=== PATIENT | male | born 1970 | race American Indian/Alaskan Native ===

== ENCOUNTER 2024-11-29 16:00 | Emergency (ER) | payer OTHER, SELFPAY ==
[2024-11-29] VITALS (10 sets, daily range): BP systolic 73–142; BP diastolic 49–65; PULSE 87–100; RESP 16–20; TEMP 36.6–36.8; O2SAT 91–100; BMI 38.7
--- NOTE | 2024-11-29 16:39 | EKG_ITS ---
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
--- NOTE | 2024-11-29 16:43 | PD.EDABDPN ---
ED Abdominal Pain RME/HPI General Chief Complaint: Abdominal Pain Stated complaint: UPPER ABD PAIN, N/V, BLACK STOOL, WEAKNESS Time seen by provider: 11/29/24 16:14 Arrival date/time: 11/29/24 16:00 RME / HPI RME / HPI narrative: 54-year-old male patient with significant history of chronic alcoholism, consuming 36 cans of beer every week, came in for evaluation regarding upper abdominal pain, nausea, vomiting, was also noted to have black stool for the last 3 days. No fever but complained of generalized body weakness.. In the triage patient was noted to be a blood pressure of 73/54 heart rate of 98. Patient is not taking any blood thinner Related Data Allergies Allergy/AdvReac Type Severity Reaction Status Date / Time No Known Allergies Allergy Verified 11/29/24 16:04 Review of Systems Review of Systems Narrative Review of Systems: Review of system reviewed and within normal limits except mentioned in HPI ED Exam Narrative Physical exam: VITAL SIGNS: Reviewed. GENERAL APPEARANCE: Alert and interactive, follows commands, no acute distress, HEAD AND FACE: Non-traumatic. ENT: PERRL, pale conjunctiva, eyelid no trauma, Mucous membrane moist. NECK: Supple, nontender, no nuchal rigidity. CHEST: No tenderness, no crepitus, no paradoxical movement, no retractions. LUNGS: Clear, well ventilated, symmetric, no rales, no wheezing, no ronchi, no stridor, good breath sounds bilaterally. HEART: Regular rate, regular rhythm, no murmur, no gallops. ABDOMEN: Soft, positive bowel sounds, nondistended, no guarding, nontender, no rebound, no masses, RECTAL: Deferred. GENITAL: Deferred. NEUROLOGICAL: Gross motor function intact sensory function intact, Appropriate for age. MUSCULOSKELETAL: low back nontender, full range of motion. EXTREMITIES: Nontender, full range of motion. SKIN: Color pink, dry, no rash, no lacerations, no abrasions, no contusions. LYMPHATICS: Deferred. Course Quality Measures none Orders Category Date Time Status Blood Sugar Check-Sandostatin Q1HR Care 11/29/24 19:35 Active EKG (ED ONLY) *Do not use* NOW Care 11/29/24 16:39 Completed Occult Blood,Stool (Nursing) NOW Care 11/29/24 16:39 Active Referral - Marketing Communications Leader Stat Cons 11/29/24 18:16 Active EKG (ED Only) Stat Exams 11/29/24 16:39 Draft Alcohol, Blood Medical Stat Lab 11/29/24 17:13 Completed CBC Stat Lab 11/29/24 17:13 Completed CBC [CBC] Stat Lab 11/29/24 22:27 Completed Comprehensive Metabolic Panel Stat Lab 11/29/24 17:13 Completed Drug Screen,Urine Stat Lab 11/29/24 19:11 Completed Lipase Stat Lab 11/29/24 17:13 Completed Partial Thromboplastin Time Stat Lab 11/29/24 17:13 Completed Prothrombin Time with INR Stat Lab 11/29/24 17:13 Completed Type and Screen Stat Lab 11/29/24 17:13 Completed Urinalysis Stat Lab 11/29/24 19:11 Completed Octreotide Acet Inj [SandoSTATIN Inj] Med 11/29/24 16:39 Discontinued 50 mcg IV X1 ONE Pantoprazole Inj [Protonix Inj] Med 11/29/24 16:39 Discontinued 80 mg IV X1 ONE Ringers Lactated 1000 ml [Lactated Ringers] 1,000 ml Med 11/29/24 18:11 Discontinued IV 999 mls/hr Ringers Lactated 1000 ml [Lactated Ringers] 1,000 ml Med 11/29/24 21:53 Discontinued IV 999 mls/hr Sodium Chloride 0.9% [Ns] 100 ml Med 11/29/24 16:40 Active Octreotide Acet Inj [SandoSTATIN Inj] 1,000 mcg IV 50 mcg/hr Vital Signs Vital signs: Vital Signs Temperature 98.1 F 11/29/24 16:33 Pulse Rate 98 11/29/24 16:33 Respiratory Rate 18 11/29/24 16:33 Blood Pressure 73/54 L 11/29/24 16:33 Pulse Oximetry (%) 97 11/29/24 16:33 Oxygen Delivery Method Room Air 11/29/24 16:33 Abdominal Pain MDM MDM Narrative MDM Narrative:: 54-year-old male patient with significant history of chronic alcoholism, consuming 36 cans of beer every week, came in for evaluation regarding upper abdominal pain, nausea, vomiting, was also noted to have black stool for the last 3 days. No fever but complained of generalized body weakness.. In the triage patient was noted to be a blood pressure of 73/54 heart rate of 98. Patient is not taking any blood thinner Patient received 2 L of IV LR, for hypotension currently patient's blood pressure was noted to be 102/59. Patient's hemoglobin was noted to be 11.1, after 3 hours, it dropped to 8.9. Hematocrit of 26. Patient is to be transferred to higher level care. We do not have GI specialist on-call today. I spoke with Dr. Jimenez from [facility] who accepted the patient. Thank you Dr. Patient data External records reviewed:: None Clinical information provided by:: patient Social determinants that could affect healthcare access:: alcohol use Patient has the following chronic illnesses:: None How is presenting disease/condition affected by chronic disease/condition?: no chronic disease Evaluation data The following diagnostics were reviewed and interpreted by me:: lab results and EKG tracing(s) Lab and/or radiology exams considered but not ordered:: None Interpretation Summary: EKG shows sinus rhythm, ventricular rate of 83 bpm, no ST segment elevation depression noted. Medications / Prescriptions Medications or Prescriptions considered but not ordered:: None Medication administrations:: Medication Administration History Octreotide Acetate 1,000 mcg/ (Sodium Chloride) 102 mls @ 5.1 mls/hr IV .Q20H ONE; Protocol Stop: 11/30/24 12:39 Last Admin: 11/29/24 18:30 Dose: 50 mcg/hr, 5.1 mls/hr Documented By: NILS Discontinued Medications Lactated Ringer's (Lactated Ringers) 1,000 mls @ 999 mls/hr IV .Q1H1M ONE Stop: 11/29/24 19:11 Last Infusion: 11/29/24 19:27 Dose: Infused Documented By: Admin: 11/29/24 18:17 Dose: 999 mls/hr Documented By: NILS Lactated Ringer's (Lactated Ringers) 1,000 mls @ 999 mls/hr IV .Q1H1M ONE Stop: 11/29/24 22:53 Last Infusion: 11/29/24 22:49 Dose: Infused Documented By: Admin: 11/29/24 21:58 Dose: 999 mls/hr Documented By: FLORIN Octreotide Acetate (Octreotide Acet Inj 50 Mcg/Ml Vial) 50 mcg IV X1 ONE Stop: 11/29/24 16:40 Last Admin: 11/29/24 18:21 Dose: 50 mcg Documented By: NILS Pantoprazole Sodium (Pantoprazole Inj 40 Mg Vial) 80 mg IV X1 ONE Stop: 11/29/24 16:40 Last Admin: 11/29/24 18:18 Dose: 80 mg Documented By: VG IV fluids, pantoprazole IV, Sandostatin IV, Consultations Consultation(s) initiated? (list below): No Diagnosis Differential diagnosis abdominal pain: other (Upper GI bleed, black tarry stool, hypotension, anemia) Most likely diagnosis given after review of the tests above:: Upper GI bleed Admission Indicated Admission indicated?: indicated (Patient is to be transferred to higher level care) Admission Request Was there a request for admission?: No Disposition Plan Disposition Plan: Transfer Discharge Plan Plan Patient Disposition: [facility] Facility Pt Being Transferred to: [facility] Prescriptions/Referrals Referrals: No Primary/Family,Physician [Primary Care Provider] - In 1 week Problem List Clinical Impression: Hypotension, Acute upper gastrointestinal bleeding, Alcoholism, chronic Patient/Caregiver Discharge Instructions Print Language: [place] Citizen Stand Alone Forms: Candida Award Info., Patient Portal Info Letter
[2024-11-29 17:36] LABS: Basophils # (Auto) 0.1 Thou/mm3 (0.0-0.2); Basophils % (Auto) 1 % (0-2.5); Eosinophils # (Auto) 0.4 Thou/mm3 (0.0-0.5); Eosinophils % (Auto) 3 % (0-10); Hematocrit 32.3 % (41.0-53.0); Hemoglobin 11.1 g/dL (13.5-16.0); Immature Granulocytes % (Auto) 0 % (0-0); Immature Granulocytes Auto 0.07 Thou/mm3 (0.00-0.00); Lymphocytes # (Auto) 3.8 Thou/mm3 (1.0-4.8); Lymphocytes % (Auto) 24 % (10-50); Mean Corpuscular HGB Conc 34.4 g/dl (31.0-37.0); Mean Corpuscular Hemoglobin 30.7 pg (25.0-35.0); Mean Corpuscular Volume 89 fL (80-100); Monocytes # (Auto) 0.9 Thou/mm3 (0.0-0.8); Monocytes % (Auto) 6 % (0-12); Neutrophils # (Auto) 10.7 Thou/mm3 (1.8-7.7); Neutrophils % (Auto) 67 % (37-80); Nucleated Red Blood Cell % 0 /100 WBC (0); Platelet Count 230 Thou/mm3 (140-440); RDW Standard Deviation 41.6 fL (35.1-43.9); Red Blood Count 3.62 Miln/mm3 (4.50-5.90); White Blood Count 15.9 Thou/mm3 (3.8-10.6)
--- NOTE | 2024-11-29 18:16 | PC.CC ---
Addendum entered by Bridget Nino RN 11/29/24 18:50: Spoke to Marquita at [facility] about transfer, call transferred to ER Addendum entered by Bridget Nino RN 11/29/24 18:20: Chart faxed to [facility] system Original Note: Made aware by DOMINGO Saez that patient needs transfer for GI for GI bleed
[2024-11-29] MEDS: RINGERS LACTATED 1000 ML 1,000 ML 999 ML IV ×2 (18:17→21:58)
[2024-11-29] MEDS: PANTOPRAZOLE INJ 40 MG VIAL 80 MG IV (18:18)
[2024-11-29] MEDS: OCTREOTIDE ACET INJ 50 mCg/ML VIAL IV (18:21)
[2024-11-29 18:30] LABS: Alanine Aminotransferase 27 U/L (10-49); Albumin, Serum 3.9 gm/dL (3.5-5.0); Albumin/Globulin Ratio 1.9 (1.2-2.2); Alcohol, Blood Medical < 3.0 mg/dL (0-10.0); Alkaline Phosphatase 64 U/L (46-116); Anion Gap 11 (7-16); Aspartate Amino Transferase 15 U/L (0-34); BUN/Creatinine Ratio 52 Ratio (12-20); Bilirubin,Total 0.5 mg/dL (0.3-1.2); Blood Urea Nitrogen 62 mg/dL (9-23); Calcium 8.6 mg/dL (8.3-10.6); Calcium (Corrected) 8.7 mg/dL (8.5-10.1); Carbon Dioxide 20.7 mMol/L (20.0-31.0); Chloride 105 mMol/L (98-107); Creatinine (Component) 1.2 mg/dL (0.6-1.3); Estimated Creatinine Clearance 90.2 mL/min (>60); Globulin 2.1 gm/dL (2.3-3.5); Glucose 198 mg/dL (74-106); Lipase 36 U/L (12-53); Osmolality,Calculated 297 (275-295); Potassium 4.8 mMol/L (3.4-5.1); Sodium 137 mMol/L (136-145); eGFR > 60 See Note
[2024-11-29] MEDS: OCTREOTIDE ACET INJ 1,000 MCG in SODIUM CHLORIDE 0.9% 100 ML 5.1 MCG IV (18:30)
[2024-11-29 18:37] LABS: Partial Thromboplastin Time 24.3 Seconds (22.0-36.0); Prothrombin Time 11.1 Seconds (9.0-12.2)
[2024-11-29 19:16] LABS: Collection Type, Urine Clean Catch
[2024-11-29 19:26] LABS: Bilirubin,Urine Negative (Negative); Blood,Urine Negative (Negative); Clarity,Urine Clear (Clear/Hazy); Color,Urine Yellow (Lt Yel-Yel); Glucose, Urine 4+ (Negative); Hyaline Casts,Urine 1 /hpf (0-1); Ketones,Urine Trace (Negative); Leukocyte Esterase,Urine Negative (Negative); Nitrite,Urine Negative (Negative); PH,Urine 5.5 (5.0-7.0); Protein,Urine Trace (Neg - Trace); RBC,Urine 1 /hpf (0-3); Specific Gravity,Urine 1.027 (1.001-1.035); Squamous Epithelial Cell,Urine 5 /hpf (0-5); Urobilinogen,Urine Negative mg/dL (0.0-1.0); WBC,Urine 3 /hpf (0-5)
[2024-11-29 19:29] LABS: Amphetamine/Methamp Scrn,U Negative (Negative); Barbiturate Screen,Urine Negative (Negative); Benzodiazepines Screen,Urine Negative (Negative); Benzoylecgonine Screen, Ur Positive (Negative); Fentanyl Screen,Urine Negative (Negative); Opiate Screen,Urine Negative (Negative); THC Screen,Urine Negative (Negative)
--- NOTE | 2024-11-29 20:32 | PC.NURSE ---
2017 [facility] CONTACTED. TRANSFER NURSE STATED THAT DR LEMON STATES HE IS AT [facility] AT THIS TIME
--- NOTE | 2024-11-29 20:57 | PC.NURSE ---
2020 [facility] CONTACTED TRANSFER NURSE SPEAKING WITH KAREN CALDERÓN.
--- NOTE | 2024-11-29 21:50 | PC.NURSE ---
PT BP LOW, ABREA PA AWARE AND NEW ORDER GIVEN
[2024-11-29 22:41] LABS: Basophils # (Auto) 0.1 Thou/mm3 (0.0-0.2); Basophils % (Auto) 1 % (0-2.5); Eosinophils # (Auto) 0.3 Thou/mm3 (0.0-0.5); Eosinophils % (Auto) 3 % (0-10); Hemoglobin 8.9 g/dL (13.5-16.0); Immature Granulocytes % (Auto) 1 % (0-0); Immature Granulocytes Auto 0.08 Thou/mm3 (0.00-0.00); Lymphocytes % (Auto) 35 % (10-50); Mean Corpuscular HGB Conc 34.2 g/dl (31.0-37.0); Mean Corpuscular Hemoglobin 31.6 pg (25.0-35.0); Mean Corpuscular Volume 92 fL (80-100); Monocytes # (Auto) 0.7 Thou/mm3 (0.0-0.8); Monocytes % (Auto) 6 % (0-12); Neutrophils # (Auto) 6.2 Thou/mm3 (1.8-7.7); Neutrophils % (Auto) 55 % (37-80); Nucleated Red Blood Cell % 0 /100 WBC (0); Platelet Count 148 Thou/mm3 (140-440); RDW Standard Deviation 41.7 fL (35.1-43.9); Red Blood Count 2.82 Miln/mm3 (4.50-5.90); White Blood Count 11.3 Thou/mm3 (3.8-10.6)
[2024-11-30] VITALS (7 sets, daily range): BP systolic 93–148; BP diastolic 52–74; PULSE 92–98; RESP 16–20; TEMP 36.7–37.1; O2SAT 95–100
--- NOTE | 2024-11-30 01:40 | PC.NURSE ---
PT ACCEPTED BY DR SINGH WITH [facility]. PER TRANSFER NURSE WE ARE AWAITING BED. TRANSFER NURSE CALLED [facility] PT AWAITING INSURANCE AUTHORIZATION.
--- NOTE | 2024-11-30 02:53 | PC.NURSE ---
PT ACCEPTED BY DR SNOWDEN WITH [facility]. ER TO ER REPORT [phone].
--- NOTE | 2024-11-30 03:10 | PC.NURSE ---
TRANSFER PT TO [facility] VIA AMBULANCE. OCTREOTIDE ON GOING 1 UNIT OF BLOOD TRANSFUSION ON GOING.
--- NOTE | 2024-11-30 04:10 | PC.NURSE ---
ARRIVED AT [facility], REPORT GIVEN TO AYUSH LIM.
== END 2024-11-30 06:03 | disposition short-term general hospital (02) ==
PROVIDERS: Nurse Practitioner Family; Emergency Provider Emergency Medicine
DX: K92.2 Gastrointestinal hemorrhage, unspecified (principal); I95.9 Hypotension, unspecified; F10.20 Alcohol dependence, uncomplicated; R94.31 Abnormal electrocardiogram [ECG] [EKG]; Y90.0 Blood alcohol level of less than 20 mg/100 ml; Z75.1 Person awaiting admission to adequate facility elsewhere
CPT/HCPCS: 36415; 36430; 80053; 80307; 80320; 81001; 83690; 85025; 85610; 85730; 86850; 86900; 86901; 86923; 93005; 96361; 96374; 99285; J2354; J2470; J7050; J7120; P9016; G0480